=== PATIENT | female | born 1985 | race Asian ===

== ENCOUNTER 2018-08-29 12:04 | Outpatient (CLI) | payer BC ==
[~2018-08-29] VITALS: Ht 152.4 cm; Wt 85.0 kg
[~2018-08-29 12:04] MED LIST: MOTRIN 600600 MG/TAB PO; PERCOCET 325 MG1 TA2 PO; PRENATAL VITAMI1 T12 PO
[2018-08-29 12:11] VITALS: BP 118/71; PULSE 110; TEMP 98
--- NOTE | 2018-08-29 12:15 | NUR ---
Patient ambulatory to unit accompanied by spouse. Patient does not speak maltese well but does understand. translates for patient. Patient states since 0500 she has been neftaly but in the past hour they have become more regular. Patient planning for if she is in labor. G2L1, 39 weeks. Patient denies any complications with this . FHR and contraction monitor placed and explained. Contraction palpated moderate. Patient resting in bed with contraction. SVE /-3 per Jessee Portillo RN. Small amount of dried brown old blood noted on glove with exam. Assessment completed. Dr. Villafana called for further orders.
[2018-08-29 12:30] VITALS: BP 106/62; PULSE 103
[2018-08-29] MEDS ORDERED: IRON TABLETS325 MG PO (12:41)
[2018-08-29 13:30] VITALS: BP 106/59; PULSE 94
--- NOTE | 2018-08-29 13:30 | NUR ---
Patient off monitors. Discharge instructions reviewed with patient and spouse. Spouse translates to patient and both verbalize understanding.
== END 2018-08-29 13:40 | disposition home or self-care (01) ==
LOC: LDRO 12:04
DX: O62.9 Abnormality of forces of labor, unspecified (principal); Z3A.39 39 weeks gestation of pregnancy

== ENCOUNTER 2018-08-30 03:08 | Inpatient (IN) | payer BC ==
[~2018-08-30] VITALS: Ht 157.5 cm; Wt 85.0 kg
[2018-08-30] VITALS (35 sets, daily range): BP systolic 94–131; BP diastolic 46–86; PULSE 69–142; TEMP 98–100.6
[~2018-08-30 03:08] MED LIST changes: +IRON TABLETS325 MG PO
--- NOTE | 2018-08-30 03:20 | NUR ---
Pt arrived on unit escorted by and with complaints of contractions and possible ROM. EFM and toco monitors applied. Amniotest done and positive for ROM with clear fluid noted on exam. SVE by this RN 2-3//-2. Pt reports contractions all day but more intense after SROM and reports normal movement. Pt had c/s with first baby due to intolerance but would like to do . Information reviewed with Dr. Edwards. Orders for labor admission received. IV started and labs obtained. Consents signed. Plan of care reviewed with pt and at the bedside.
[2018-08-30 03:58] LABS: BASO % 0.2 % (0.0-2.0); EOS # 0.1 (0.0-0.7); EOS % 1.1 % (0-4.0); GRAN # 8.1 (1.4-6.5); HEMOGLOBIN 11.6 g/dl (12.5-16.0); LYMPH # 2.6 (1.2-3.4); LYMPH % 22.1 % (20.0-51.0); MEAN CELL VOLUME 89 fl (80.0-100.0); MEAN CORPUSCULAR HEMOGLOBIN 30 pg (27.0-31.0); MEAN CORPUSCULAR HGB CONC 33 g/dl (33.0-37.0); MEAN PLATELET VOLUME 10.8 fl (7.4-10.4); MONO # 0.9 (0.1-0.6); MONO % 7.7 % (1.7-9.3); PLATELET COUNT 219 K/mm3 (130-400); REDCELL DISTRIBUTION WIDTH-CV 14.7 % (11.5-14.5)
--- NOTE | 2018-08-30 04:00 | NUR ---
0400- CARLOS EDUARDO Nunez at the bedside for epidural placement. Pt sitting up on the edge of the bed. SPO2 monitor placed. EFM intermittently tracing maternal HR as coorelates with SPO2 monitor. 0408- Single shot given per INSTRUMENT MAKER. See anesthesia record for details. 0413- Repositioned pt supine in bed with left wedge. 0418- SVE by this RN /- 0430- [place] placed without complications. Plan of care reviewed.
[2018-08-30 04:01] LABS: HEMATOCRIT 34.7 % (37.0-47.0)
--- NOTE | 2018-08-30 09:40 | NUR ---
Pt notified of decelerations with contractions. FHR strip reviewed. Orders to continue increasing pitocin infusion. 0945-Dr. Villafana notified of oral temperature 99.4F and FHR strip. Physician on route to unit. 1000-Dr. Villafana at bedside. Assesses maternal effort. Orders to continue pushing. 1035-Dr. Villafana discusses vaccuum assisted delivery. Pt agrees to POC. 1039-Vaccuum applied. Dr. Villafana begins pushing wit pt. 1040-First vaccuum pop off noted. 1045-Second pop off noted. Dr. Villafana begins pushing with pt without vaccuum. Midline episiotomy performed. 1048-Vaginal delivery of viable female infant attended by Dr. Villafana. Cord clamped x 2 and cut from umbilicus. Cord gasses obtained. dried and placed on warmer. Apgars 8/9/9. Care of to Mariela Aguilera RN. 1052- of placenta. Fundus firm at umbilicus, bleeding WNL. Pitocin bolus infusing. Pericare performed. Ice pack applied. Pt updated on POC. Safety reviewed. No questions or concerns at this. 1137-Maternal tachycardia noted, oral temperature at 100.5F. Dr. Villafana notified. Orders for 2g Amp and 120mg Gent x now.
[2018-08-31 04:30] VITALS: BP 106/55; PULSE 82; TEMP 97.9
[2018-08-31 09:32] VITALS: BP 112/69; PULSE 109; TEMP 98.9
[2018-08-31 12:00] VITALS: BP 93/50; PULSE 89; TEMP 97.9
[2018-08-31 16:10] VITALS: BP 110/66; PULSE 98; TEMP 97.8
[2018-08-31 20:00] VITALS: BP 106/65; PULSE 107; TEMP 98.7
[2018-09-01 07:25] VITALS: BP 108/56; PULSE 77; TEMP 98
[2018-09-01] MEDS ORDERED: MOTRIN 800800 MG/TAB PO (11:26)
== END 2018-09-01 14:00 | disposition home or self-care (01) | DRG 805 ==
LOC: LDRO 03:08 → LDR 03:36 → OB 13:00
PROVIDERS: Student in an Organized Health Care Education/Training Program; ADMIT Obstetrics & Gynecology
PROC: 10D07Z6 Extraction of Products of Conception, Vacuum, Via Natural or Artificial Opening (ICD-10-PCS; principal; 2018-08-30)
PROC: 0W8NXZZ Division of Female Perineum, External Approach (ICD-10-PCS; 2018-08-30)
DX: O34.211 Maternal care for low transverse scar from previous cesarean delivery (principal); O41.1230 Chorioamnionitis, third trimester, not applicable or unspecified; Z37.0 Single live birth; N85.8 Other specified noninflammatory disorders of uterus; Z3A.39 39 weeks gestation of pregnancy; O99.02 Anemia complicating childbirth; D64.9 Anemia, unspecified; O62.1 Secondary uterine inertia; O76 Abnormality in fetal heart rate and rhythm complicating labor and delivery; O77.0 Labor and delivery complicated by meconium in amniotic fluid
CPT/HCPCS: J0290; J1580; J2590; J2795; J7120